=== PATIENT | male | born 1950 | race Two or more races ===

== ENCOUNTER 2018-06-11 08:30 | Outpatient (CLI) | payer OTHER ==
--- NOTE | 2018-06-11 10:58 | Diagnostic Imaging Report ---
Indication: Osteoporosis Technique: 10 mm thick slices obtained through the L2, L3, and L4 vertebral bodies. Cortical and trabecular regions of interest were drawn. The average trabecular bone mineral density was calculated. Total dose length product 32.09 mGycm. CTDIvol(s) 3 x 3 mGy. Dose reduction achieved using automated exposure control Comparison: 12/06/2005 Findings: The calculated bone mineral density is 87.4 mg ca-CAMPOS/ml. The T score is -3.29. This indicates the patient's bone mineral density is 3.29 standard deviations below that of normal 20-year-old males. The Z score is -0.12. This indicates the patient's bone mineral density is 0.12 standard deviations below that of age-matched controls. Findings are not significantly changed from previous study, at which time calculated bone mineral density was 89, and the T score was -3.24 Incidental note is made on the available images of colonic diverticulosis Impression: Patient's bone mineral density is greater than 25% below that of normal 20-year-old males. Patient is considered osteoporotic by WHO criteria. Insufficiency fracture risk is high. Patient should be considered for therapy, if not already initiated, with followup scan in one year to monitor response to therapy. Note that findings are essentially stable from a prior exam of 12/06/[address] scanner at [facility] is accredited by the [employer] and the scans are performed using protocols designed to limit radiation exposure to as low as reasonably achievable to attain images of sufficient resolution adequate for diagnostic evaluation.
== END 2018-06-11 10:30 | disposition home or self-care (01) ==
LOC: CAT 08:30
DX: M81.0 Age-related osteoporosis without current pathological fracture (principal)
CPT/HCPCS: 77078